=== PATIENT | male | born 1940 | race Caucasian/White ===

== ENCOUNTER → 2016-11-27 | Outpatient (CLI) | payer OTHER ==
[~2016-11-27] MED LIST: AGGRENOX PO; AGGRENOX1 CAP PO; AMLODIPINE BESYL5 MG PO; ASPIRIN ENTERI325 M1 PO; ASPIRIN81 M1 PO; BAYER CHEWABLE81 MG PO; BETAPACE PO; CORDARONE200 M1 PO; DOC-Q-LACE100 MG PO; ELIQUIS5 MG PO; LIPITOR PO; LIPITOR40 MG PO; OMEPRAZOLE20 M2 PO; PROTONIX PO; SIMVASTATIN40 MG PO; TOPROL XL50 MG PO; TUMS500 M1 PO; XARELTO20 MG PO; ZESTORETIC 10-1 EAC1 PO; [UNRECOGNIZED DRUG - OTHER] PO
--- NOTE | ~2016-11-27 | US37 ---
[facility] A Service of [facility] RADIOLOGY TEXT RESULTS PATIENT: KAM CAICEDO LOCATION: CNIV : 41 UNIT #: [id number] AGE: [address]: Jimmy Das MD SEX: M ORDER DR: [id number] [facility] [address] [place], [place] [address] [id number] O MR#: [id number] Acc #: [id number] NAME: KAM CAICEDO : 1940 SEX: M STUDY DATE/TIME: 11/27/2016 13:14 UNIT: CNIV ROOM: STUDY DESCRIPTION: US Carotid W/Doppler Bilateral Attending Physician: Jimmy Das M.D. Referring Physician: Jimmy Das M.D. Ordering Physician: Jimmy Das M.D. Primary Care Physician: Rangel Hylton M.D. MEDICAL IMAGING REPORT This report is preliminary unless electronic signature is present EXAM Bilateral carotid duplex date of examination 11/27/2016 HISTORY Carotid bruit FINDINGS There is patent flow seen throughout the right common carotid, internal carotid, and external carotid arteries. There is mild atherosclerosis noted of the right common carotid artery. At the right carotid bifurcation, there is some irregular, heterogeneous calcifications. There is also some irregular heterogeneous and echogenic plaque seen in the proximal aspect of the right internal carotid artery. The right common carotid artery peak velocity is 66 cm/sec. The right internal carotid artery peak systolic over end diastolic velocities are: Proximal 163/58 cm/sec, mid 143/44 cm/sec, distal 57/27 cm/sec. The right external carotid artery peak velocity is 75 cm/sec, and vertebral artery 45 cm/sec. The ICA/CCA ratio is 2.4. There is patent flow seen throughout the left common carotid, internal carotid, and external carotid arteries. There is some diffuse, homogeneous, irregular appearing plaque seen in the left common carotid artery. There is some mild irregular, and heterogeneous plaque seen in the left internal carotid artery at its proximal aspect. The left common carotid artery peak velocity is 59 cm/sec. The left internal carotid artery peak systolic over end diastolic velocities are: Proximal 47/19 cm/sec, mid 68/24 cm/sec, distal 43/16 cm/sec. The left external carotid artery peak velocity is 67 cm/sec, and vertebral artery 42 cm/sec. The left ICA/CCA ratio is 1.2. IMPRESSION 1. There is moderate atherosclerosis of the right carotid artery, which STS. [facility] A Service of [facility] RADIOLOGY TEXT RESULTS PATIENT: KAM CAICEDO LOCATION: CNIV : 41 UNIT #: [id number] AGE: [address]: Jimmy Das MD SEX: M ORDER DR: is consistent with 50-69% stenosis by duplex criteria. This finding is unchanged from the 05/2016 study. 2. The left carotid artery has minimal to mild atherosclerosis, which is not hemodynamically significant by duplex criteria (less than 50%). This finding is unchanged from the 05/2016 study. 3. Vertebral flow is antegrade bilaterally. Dictated by... Jim Ribera M.D. THIS IS AN ELECTRONICALLY VERIFIED REPORT Jim Ribera M.D. at 11/28/2016 2:25 PM MEME/rahta TD: 11/27/2016 16:45 JOB #: [id number] MEDICAL IMAGING REPORT Page 1 of 1 COPY
== END | disposition home or self-care (01) ==
LOC: CNIV 11:36
DX: R09.89 Other specified symptoms and signs involving the circulatory and respiratory systems (principal); I35.0 Nonrheumatic aortic (valve) stenosis; I65.23 Occlusion and stenosis of bilateral carotid arteries
CPT/HCPCS: 93306; 93880

== ENCOUNTER 2016-11-30 19:55 | Observation (INO) | payer OTHER ==
--- NOTE | ~2016-11-30 | HP ---
Unit #: [id number] #: [id number] Patient: KAM CAICEDO [id number] [facility]. [place], [place] [address] [id number] I MR#: [id number] NAME: KAM CAICEDO ROOM: 561 Age: 76 Sex: M Admission Date: 11/30/2016 : 1940 Attending Physician: Jimmy Das M.D. Primary Care Physician: Rangel Hylton M.D. HISTORY AND PHYSICAL NOTE This is a [facility] Cardiologists patient who follows with Dr. Das. REASON FOR ADMISSION Atrial fibrillation. HISTORY OF PRESENT ILLNESS The patient is a 76-year-old man who has been followed by Dr. Jimmy Das. Reportedly on December 26, 2011 patient had a cath with normal coronaries with an ejection fraction of 60%. The gradient across the aortic valve was 24 mm. On December 17, 2013 patient had a plain treadmill stress test which showed no ischemia. On December 05, 2014 patient had a 2D echocardiogram which showed an EF of 55% to 60%. RV was moderately dilated. LA mildly dilated. RA moderately dilated. Mild TR. RSVP was 35 mmHg. Aortic stenosis with peak/mean gradient 24/14 mmHg. MOHSEN 1.7 cm squared. The patient reports that he was diagnosed with atrial fibrillation and also has a history of a CVA. He reports that Dr. Das stopped his Eliquis approximately one year ago; put him back on his Aggrenox. The patient reports that yesterday around 6:30 after walking five miles the patient felt his face become flushed and felt fluttering and palpitations in his chest. There was no associated shortness of breath or diaphoresis. There is no radiation of pain. He did think he had some left chest soreness. This is how he felt the last time he had an episode of atrial fibrillation. In the emergency department EKG showed atrial fibrillation with RVR. His troponin was less than 0.05. Patient has been admitted to Cardiology and we are following for further management. PAST MEDICAL HISTORY 1. Cardiac cath December 26, 2011, normal coronaries, 24 mm gradient across the AV with an EF of 60%. 2. Plain treadmill December 17, 2013 showed no ischemia. 3. Two-D echo from December 05, 2014 showed an EF of 55% to 60% with right ventricle moderately dilated, left atrium mildly dilated, right atrium moderately dilated, mild MR and TR, RSVP 35 mmHg. Mild with peak/mean gradient 22/14 mmHg. MOHSEN 1.7 cm squared. 4. Paroxysmal atrial fibrillation. 5. CVA. 6. Hypertension. 7. Hyperlipidemia. 8. Obstructive sleep apnea. Unit #: [id number] #: [id number] Patient: KAM CAICEDO PAST SURGICAL HISTORY 1. Bilateral inguinal hernia repair. 2. Appendectomy. ALLERGIES No known allergies. HOME MEDICATIONS 1. Aggrenox one tab p.o. daily. 2. Zestoretic /.5 mg p.o. daily. 3. Lipitor 40 mg p.o. daily. 4. Amlodipine 5 mg p.o. daily. 5. Omeprazole 20 mg p.o. daily. 6. Toprol-XL 50 mg p.o. daily, FAMILY HISTORY Patient reports that his mother had congestive heart failure. His younger brother has cardiac arrhythmia and his sister at the age of 66 with congestive heart failure. SOCIAL HISTORY Patent reports that he quit smoking in 1978. He smokes approximately one pack of cigarettes per day. He is retired from [employer]. He states that he is fairly active and walks or bikes five miles a day. REVIEW OF SYSTEMS A 10-point review of systems has been done and is considered otherwise negative except as indicated in the HPI. PHYSICAL EXAMINATION GENERAL: Patient is awake, alert, in no acute distress. VITAL SIGNS: His vital signs are 97.6, heart rate 95, respirations 16, blood pressure 100/62 and he is oxygenating 96%. HEENT: Head is atraumatic and normocephalic. Pupils equally round and reactive. Extraocular movements are intact. No drainage from ears or nares. NECK: Neck is supple. Trachea is midline. Normal carotid upstrokes. No thyromegaly or lymphadenopathy is appreciated. CHEST: Lungs are clear to auscultation bilaterally. CARDIOVASCULAR: Irregularly irregular. No murmurs or gallops. Patient has a 2/6 systolic ejection murmur. ABDOMEN: Abdomen is soft, nontender and distended. Bowel sounds are positive in all four quadrants. No hepatosplenomegaly is appreciated. SKIN: Appears to be warm, dry and intact. EXTREMITIES: No clubbing, edema or cyanosis. NEUROLOGIC: Patient is alert and oriented. He is pleasant and conversant. No focal deficits. Cranial nerves II-XII appear to be intact. DIAGNOSTIC STUDIES CARDIOVASCULAR: EKG showed atrial fibrillation with RVR. LABORATORY RESULTS: White blood cells 5.8, hemoglobin 12.2, hematocrit 45.7, platelets 212, sodium 135, potassium 4.5, chloride 106, CO2 25, BUN 18, creatinine 0.8, glucose 91. ASSESSMENT 1. Paroxysmal atrial fibrillation with rapid ventricular rate. 2. Mild aortic stenosis with a peak mean gradient of 22/14 mmHg. Unit #: [id number] #: [id number] Patient: KAM CAICEDO 3. Hypertension. 4. Hyperlipidemia. 5. History of cerebrovascular accident. 6. Obstructive sleep apnea. 7. Reformed tobaccoism. PLAN I have discussed this case with Dr. Morley. Since the patient has been in atrial fibrillation likely less than 24 hours we will try to convert him with Betapace 120 mg p.o. now and then 80 mg p.o. b.i.d. Will discontinue the patient's metoprolol. Will check cardiac enzymes x2, lipid panel, TSH, BMP and magnesium in the morning. The patient's Aggrenox has been stopped and the patient is now back on Eliquis 5 mg p.o. b.i.d. He is also on aspirin 81 mg p.o. daily. A 2D echocardiogram has been ordered and is pending. Dictated by Heaven Gardiner A.P.R.N. for Avila Morley M.D. AM/lacey TD: 12/01/2016 13:11 JOB #: [id number] HISTORY AND PHYSICAL Page 1 of 1 X Heaven Gardiner APRN X HISTORY AND PHYSICAL
--- NOTE | ~2016-11-30 | EKG ---
PATIENT: KAM CAICEDO UNIT #: [id number] Ventricular Rate: 50 BPM Atrial Rate: 50 BPM P-R Interval: 186 ms QRS Duration: 88 ms Q-T Interval: 414 ms QTC Calculation(Bezet): 377 ms P Gr[place]: 69 degrees Calculated T Grimes: 7 degrees Diagnosis Line: Sinus bradycardia Diagnosis Line: Otherwise normal ECG Diagnosis Line: When compared with ECG of 02-DEC-2016 02:47, Diagnosis Line: (unconfirmed) Diagnosis Line: No significant change was found Diagnosis Line: Confirmed by LYNN MIXON MD ([id number]) on 12/02/2016 Diagnosis Line: 4:48:08 PM INTERPRETING MD: APURVA WU
--- NOTE | ~2016-11-30 | CR72 ---
[facility] A Service of [facility] & [facility] RADIOLOGY TEXT RESULTS PATIENT: KAM CAICEDO LOCATION: [facility] 561-01 : 41 UNIT #: [id number] AGE: [address]: Jimmy Das MD SEX: M ORDER DR: [id number] [facility] [address] [place], [place] [address] [id number] I MR#: [id number] Acc #: [id number] NAME: KAM CAICEDO : 1940 SEX: M STUDY DATE/TIME: 11/30/2016 20:01 UNIT: [facility] ROOM: [facility] STUDY DESCRIPTION: CR Chest Single View Portable Attending Physician: Jimmy Das M.D. Ordering Physician: Steve Fierro M.D. Primary Care Physician: Rangel Hylton M.D. MEDICAL IMAGING REPORT This report is preliminary unless electronic signature is present EXAM Portable chest INDICATIONS Chest pain tonight. COMPARISON 04/16/2016 FINDINGS Lungs are well expanded. Calcified granulomas in the left base. No acute infiltrate. Heart size stable. IMPRESSION No active disease Dictated by... Quinton Ryder M.D. THIS IS AN ELECTRONICALLY VERIFIED REPORT Quinton Ryder M.D. at 12/03/2016 8:02 AM HCAYO/rahat TD: 12/01/2016 04:17 JOB #: [id number] MEDICAL IMAGING REPORT Page 1 of 1 COPY
--- NOTE | ~2016-11-30 | EKG ---
PATIENT: KAM CAICEDO UNIT #: [id number] Ventricular Rate: 109 BPM Atrial Rate: 163 BPM QRS Duration: 92 ms Q-T Interval: 306 ms QTC Calculation(Bezet): 412 ms Calculated R Weiner: 42 degrees Calculated T Weiner: -3 degrees Diagnosis Line: Atrial fibrillation with rapid ventricular Diagnosis Line: response Diagnosis Line: Abnormal ECG Diagnosis Line: When compared with ECG of 30-NOV-2016 19:33, Diagnosis Line: (unconfirmed) Diagnosis Line: ST elevation has replaced ST depression in Diagnosis Line: Anterolateral leads Diagnosis Line: Confirmed by LYNN MIXON MD ([id number]) on 12/03/2016 Diagnosis Line: 10:36:01 PM INTERPRETING MD: APURVA WU
--- NOTE | ~2016-11-30 | EKG ---
PATIENT: KAM CAICEDO UNIT #: [id number] Ventricular Rate: 44 BPM Atrial Rate: 44 BPM P-R Interval: 198 ms QRS Duration: 98 ms Q-T Interval: 424 ms QTC Calculation(Bezet): 362 ms P [place]: 65 degrees Calculated R [place]: 17 degrees Calculated T [place]: 13 degrees Diagnosis Line: Marked sinus bradycardia Diagnosis Line: Abnormal ECG Diagnosis Line: When compared with ECG of 01-DEC-2016 06:04, Diagnosis Line: (unconfirmed) Diagnosis Line: Sinus rhythm has replaced Atrial fibrillation Diagnosis Line: Vent. rate has decreased BY 65 BPM Diagnosis Line: Confirmed by LYNN MIXON MD ([id number]) on 12/03/2016 Diagnosis Line: 10:36:41 PM INTERPRETING MD: APURVA WU
--- NOTE | ~2016-11-30 | EKG ---
PATIENT: KAM CAICEDO UNIT #: [id number] Ventricular Rate: 139 BPM Atrial Rate: 101 BPM QRS Duration: 88 ms Q-T Interval: 266 ms QTC Calculation(Bezet): 404 ms Calculated R Dameron: 22 degrees Calculated T Dameron: 1 degrees Diagnosis Line: Atrial fibrillation with rapid ventricular Diagnosis Line: response Diagnosis Line: Nonspecific ST abnormality Diagnosis Line: Abnormal ECG Diagnosis Line: When compared with ECG of 16-APR-2016 22:02, Diagnosis Line: Atrial fibrillation has replaced Sinus rhythm Diagnosis Line: Vent. rate has increased BY 84 BPM Diagnosis Line: ST now depressed in Anterolateral leads Diagnosis Line: Nonspecific T wave abnormality has replaced Diagnosis Line: inverted T waves in Inferior leads Diagnosis Line: Confirmed by LYNN MIXON MD ([id number]) on 12/03/2016 Diagnosis Line: 10:35:51 PM INTERPRETING MD: APURVA WU
[~2016-11-30 19:55] MED LIST changes: -AGGRENOX1 CAP PO; -BAYER CHEWABLE81 MG PO; -BETAPACE PO; -ELIQUIS5 MG PO; -OMEPRAZOLE20 M2 PO; -TOPROL XL50 MG PO; -ZESTORETIC 10-1 EAC1 PO
[2016-11-30 20:51] LABS: BASOPHIL% 0.4 % (0-2.5); DIFF IND NO; EOSINOPHIL# 0.1 X10e3 (0-0.7); EOSINOPHIL% 1.5 % (0.0-7.0); HEMATOCRIT 45.5 % (38.0-50.0); HEMOGLOBIN 15.3 gm/dL (13.0-16.0); LYMPHOCYTE# 1.9 X10e3 (1.0-3.5); LYMPHOCYTE% 24.7 % (17.0-45.0); MEAN CELL VOLUME 90.7 FL (83-96); MEAN CORPUSCULAR HEMOGLOBIN 30.4 PG (28-34); MEAN CORPUSCULAR HGB CONC 33.5 g/dL (30-36); MONOCYTE# 0.9 X10e3 (0-1.0); MONOCYTE% 11.6 % (3.0-12.0); NEUTROPHIL# 4.8 X10e3 (1.5-7.1); NEUTROPHIL% 61.8 % (40-75); PLATELET COUNT 211 X10e3 (140-420); RED BLOOD COUNT 5.02 X10e (3.90-5.60); RED CELL DISTRIBUTION WIDTH 12.7 % (11.0-15.5); WHITE BLOOD COUNT 7.7 X10e3 (4.0-10.5)
[2016-11-30 20:52] LABS: POC - TROPONIN <0.05 ng/mL (<=0.05)
[2016-11-30 21:15] LABS: ALBUMIN SERUM 3.9 g/dL (3.5-5.0); BILIRUBIN, DIRECT 0.1 mg/dL (0.0-0.2); BILIRUBIN,INDIRECT 0.9 mg/dL (0.0-0.9); BUN/CREATININE RATIO 21.11; CALCIUM SERUM 9.2 mg/dL (8.4-10.2); CREATININE SERUM 0.9 mg/dL (0.6-1.4); GLOM FILT RATE Estimated 83.3 mL/min (>60); PROTEIN TOTAL SERUM 6.5 g/dL (6.0-8.3)
[2016-11-30] MEDS ORDERED: AGGRENOX1 CAP PO (22:00)
[2016-11-30] MEDS ORDERED: ZESTORETIC 10-1 EAC1 PO (22:00)
[2016-11-30] MEDS ORDERED: LIPITOR40 MG PO (22:00)
[2016-11-30] MEDS ORDERED: AMLODIPINE BESYL5 MG PO (22:01)
[2016-11-30] MEDS ORDERED: TOPROL XL50 MG PO (22:02)
[2016-11-30] MEDS ORDERED: OMEPRAZOLE20 M2 PO (22:02)
[2016-11-30 23:41] LABS: POC - CKMB 1.1 ng/mL (0.0-7.9); POC - TROPONIN <0.05 ng/mL (<=0.05)
[2016-12-01 05:11] LABS: BASOPHIL% 0.4 % (0-2.5); EOSINOPHIL# 0.1 X10e3 (0-0.7); EOSINOPHIL% 1.7 % (0.0-7.0); HEMATOCRIT 45.7 % (38.0-50.0); HEMOGLOBIN 15.2 gm/dL (13.0-16.0); LYMPHOCYTE# 2.6 X10e3 (1.0-3.5); LYMPHOCYTE% 30.3 % (17.0-45.0); MEAN CORPUSCULAR HEMOGLOBIN 30.3 PG (28-34); MEAN CORPUSCULAR HGB CONC 33.3 g/dL (30-36); MEAN PLATELET VOLUME 8.3 FL (6.5-11.5); MONOCYTE# 0.9 X10e3 (0-1.0); MONOCYTE% 11.1 % (3.0-12.0); NEUTROPHIL# 4.8 X10e3 (1.5-7.1); NEUTROPHIL% 56.5 % (40-75); PLATELET COUNT 212 X10e3 (140-420); RED BLOOD COUNT 5.02 X10e (3.90-5.60); RED CELL DISTRIBUTION WIDTH 12.9 % (11.0-15.5); WHITE BLOOD COUNT 8.5 X10e3 (4.0-10.5)
[2016-12-01 05:12] LABS: DIFF IND NO
[2016-12-01 06:35] LABS: BUN/CREATININE RATIO 22.5; CALCIUM SERUM 9.2 mg/dL (8.4-10.2); CREATININE SERUM 0.8 mg/dL (0.6-1.4); GLOM FILT RATE Estimated 87.4 mL/min (>60); POTASSIUM 4.5 mmol/L (3.5-5.1)
[2016-12-01 13:05] LABS: CK TOTAL 56 IU/L (36-174)
[2016-12-01 13:40] LABS: CHOLESTEROL 144 mg/dL (0-200); HDL CHOLESTEROL 55 mg/dL (29-75); LDL CHOLESTEROL 74 mg/dL ([, -130]); LDL/HDL RATIO 1 RATIO (0-4); TRIGLYCERIDES 76 mg/dL (10-160)
[2016-12-01 19:01] LABS: CK TOTAL 52 IU/L (36-174)
[2016-12-02 07:51] LABS: CALCIUM SERUM 9.1 mg/dL (8.4-10.2); GLOM FILT RATE Estimated 73.3 mL/min (>60); POTASSIUM 4.8 mmol/L (3.5-5.1)
[2016-12-02] MEDS ORDERED: ELIQUIS5 MG PO (17:26)
[2016-12-02] MEDS ORDERED: BETAPACE PO (17:27)
[2016-12-02] MEDS ORDERED: BAYER CHEWABLE81 MG PO (17:28)
== END 2016-12-02 18:00 | disposition home or self-care (01) ==
LOC: CED 19:55 → CEDOF 22:50 → C5B 12-01 00:21
PROVIDERS: Emergency Medicine
DX: I48.0 Paroxysmal atrial fibrillation (principal); I08.2 Rheumatic disorders of both aortic and tricuspid valves; I10 Essential (primary) hypertension; E78.5 Hyperlipidemia, unspecified; Z79.01 Long term (current) use of anticoagulants; Z86.73 Personal history of transient ischemic attack (TIA), and cerebral infarction without residual deficits; G47.33 Obstructive sleep apnea (adult) (pediatric); Z87.891 Personal history of nicotine dependence; Z79.82 Long term (current) use of aspirin
CPT/HCPCS: 36415; 71010; 80048; 80061; 80076; 82550; 82553; 83735; 83880; 84443; 84484; 85025; 93005; 93306; 94660; 96374; 96376; 99285; G0378; J3490

== ENCOUNTER 2017-01-21 01:51 | Inpatient (IN) | payer OTHER ==
--- NOTE | ~2017-01-21 | DS ---
Unit #: [id number] #: [id number] Patient: KAM CAICEDO [id number] [facility]. [place], [place] [address] [id number] I MR#: [id number] NAME: KAM CAICEDO ROOM: 335 Age: 76 Sex: M Admission Date: 01/21/2017 : 1940 Discharge Date: 01/24/2017 Attending Physician: Austin Viramontes M.D. Primary Care Physician: Rangel Hylton M.D. DISCHARGE SUMMARY ADMITTING DIAGNOSES 1. Paroxysmal atrial fibrillation with rapid ventricular response. 2. Hypertension. 3. Hyperlipidemia. 4. Obstructive sleep apnea, treated with CPAP. 5. Ejection fraction of 55%. DISCHARGE DIAGNOSES 1. Paroxysmal atrial fibrillation. 2. Sick sinus syndrome. 3. Hypertension. 4. Hyperlipidemia. 5. History of transient ischemic attack. 6. Obstructive sleep apnea. 7. Ejection fraction of 55%. PROCEDURES Procedures performed during hospitalization include the followin. EKG shows marked sinus bradycardia with a ventricular rate of 48. 2. Previous EKG shows atrial fibrillation with RVR response with premature ventricular or aberrantly conducted complexes and a ventricular rate of 108. 3. Another EKG shows atrial fibrillation with rapid ventricular rate and nonspecific ST abnormality with a ventricular rate of 109. HOSPITAL COURSE Mr. Caicedo is a 76-year-old male that has a history of paroxysmal atrial fibrillation diagnosed in 2011. He was hospitalized the beginning of last month with atrial fibrillation with RVR and started on sotalol. He was discharged and taking 40 mg b.i.d. He developed some palpitations and extreme fatigue with this and it was decreased to 40 mg daily. He presented to the emergency room at [facility] then on January 21, 2017 at approximately 2 a.m. with a complaint of palpitations. He was found to be in atrial fibrillation with RVR and he was started on a Cardizem drip. He was continued on his Betapace at 40 mg. He received 40 mg later that morning of admission as well as 80 mg that evening. He converted to sinus bradycardia. His rates were decreased to 31 at times. With being awake and conversing, his rates were in the high 40s. Walking down the hallway, his rates increased to the 60s. He was having no other symptoms of dizziness or shortness of breath. Dr. 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 He has been referred for permanent pacemaker implantation. He will be transferred to [facility] early tomorrow morning for completion of this at that facility. Unit #: [id number] #: [id number] Patient: KAM CAICEDO This discharge dictation is being completed in anticipation of transport to [facility] in the early a.m. for completion with Dr. Allan of pacemaker implant. I have discussed with him at length the risks and benefits. He is in agreement to proceed. He has multiple questions and concerns which I have addressed. Further recommendations for atrial fibrillation treatment will be made after the device implant tomorrow. His last dose of Eliquis was on the evening of January 20, 2017. He has remained in sinus rhythm since conversion. He has been showing sinus bradycardia. Blood pressure 146/85, pulse 55, respirations 16. He is not having any dyspnea. DIAGNOSTIC STUDIES LABORATORY: Pertinent labs during hospitalization include: Sodium 138, potassium 4.7, glucose 113, BUN 19, creatinine 0.8, magnesium 2.1. Troponin less than 0.03 x2. Prior to that was 0.03 and prior to that was less than 0.05 x2. INR 1, PT 10.3. TSH 3.25. Sodium 138, potassium 4.7, glucose 113, BUN 19, creatinine 0.9, magnesium 2.1. DISCHARGE MEDICATIONS 1. Lopressor 5 mg IV q.6 p.r.n. for heart rate greater than 120. 2. Lipitor 40 mg nightly. 3. Ambien 2.5 mg nightly p.r.n. 4. Aspirin 81 mg daily. 5. Protonix 40 mg daily. DISCHARGE INSTRUCTIONS 1. Diet: He will be NPO on transport as he will be NPO after midnight tonight for pacemaker implantation tomorrow. Further diet recommendations after implantation. 2. Activity: Will be determined after implantation. He will have restricted activity of the limb at the site of implant. 3. Followup visit will also be established after discharge from [facility]. Dictated by... Myron Barcenas.P.R.NViolet for KodLilian Carrillo TD: 01/25/2017 09:36 JOB #: [id number] DISCHARGE SUMMARY Page 1 of 1 X X DISCHARGE SUMMARY
--- NOTE | ~2017-01-21 | EKG ---
PATIENT: KAM CAICEDO UNIT #: [id number] Ventricular Rate: 109 BPM Atrial Rate: 138 BPM QRS Duration: 94 ms Q-T Interval: 330 ms QTC Calculation(Bezet): 444 ms Calculated R Kathryn: 14 degrees Calculated T Kathryn: 15 degrees Diagnosis Line: Atrial fibrillation with rapid ventricular Diagnosis Line: response Diagnosis Line: Nonspecific ST abnormality Diagnosis Line: Abnormal ECG Diagnosis Line: No previous ECGs available Diagnosis Line: Confirmed by NESSA RIBEIRO MD ([id number]) on Diagnosis Line: 01/21/2017 9:40:00 PM INTERPRETING MD: QUINTIN WU
--- NOTE | ~2017-01-21 | CR72 ---
[facility] A Service of [facility] & [facility] RADIOLOGY TEXT RESULTS PATIENT: KAM CAICEDO LOCATION: [facility] 335- : 41 UNIT #: [id number] AGE: [address]: Alma Viramontes MD SEX: M ORDER DR: [id number] [facility] [address] [place], [place] [address] [id number] I MR#: [id number] Acc #: [id number] NAME: KAM CAICEDO : 1940 SEX: M STUDY DATE/TIME: 01/21/2017 2:32 UNIT: [address] ROOM: [facility] STUDY DESCRIPTION: CR Chest Single View Portable Attending Physician: Austin Viramontes M.D. Ordering Physician: Yosef Conrad M.D. Primary Care Physician: Rangel Hylton M.D. MEDICAL IMAGING REPORT This report is preliminary unless electronic signature is present EXAM Portable chest INDICATIONS Palpitations. Chest pain tonight. TECHNIQUE Frontal view chest. COMPARISON STUDIES 11/30/2016. FINDINGS Cardiomegaly probably unchanged. No dense consolidation, effusion or pneumothorax. IMPRESSION Stable cardiomegaly. No active process. Dictated by... Ryland Ballesteros M.D. THIS IS AN ELECTRONICALLY VERIFIED REPORT Ryland Ballesteros M.D. at 01/22/2017 9:57 PM EED/pcl TD: 01/21/2017 11:13 JOB #: [id number] MEDICAL IMAGING REPORT Page 1 of 1 COPY
--- NOTE | ~2017-01-21 | EKG ---
PATIENT: KAM CAICEDO UNIT #: [id number] Ventricular Rate: 48 BPM Atrial Rate: 48 BPM P-R Interval: 134 ms QRS Duration: 84 ms Q-T Interval: 392 ms QTC Calculation(Bezet): 350 ms P [place]: 58 degrees Calculated R [place]: 15 degrees Calculated T [place]: 21 degrees Diagnosis Line: Marked sinus bradycardia Diagnosis Line: Abnormal ECG Diagnosis Line: No previous ECGs available Diagnosis Line: Confirmed by NESSA RIBEIRO MD ([id number]) on Diagnosis Line: 01/22/2017 3:20:29 PM INTERPRETING MD: QUINTIN WU
--- NOTE | ~2017-01-21 | HP ---
Unit #: [id number] #: [id number] Patient: KAM CAICEDO [id number] [facility] [address] [place], [place] [address] [id number] MR#: [id number] NAME: KAM CAICEDO ROOM: 335 Age: 76 Sex: M Admission Date: 01/21/2017 : 1940 Attending Physician: Austin Viramontes M.D. Primary Care Physician: Rangel Hylton M.D. HISTORY AND PHYSICAL REASON FOR ADMISSION Palpitations and irregular heartbeat. HISTORY OF PRESENT ILLNESS The patient is a 76-year-old white male who is a patient of Dr. Das and is being followed for his paroxysmal atrial fibrillation diagnosed in 2009, history of possible CVA versus TIA, hypertension, hyperlipidemia, obstructive sleep apnea and anxiety. The patient presented to the [facility] emergency department this morning after he was awakened around 1:50 a.m. with palpitations and an irregular heartbeat. The patient states that he has had several bouts of atrial fibrillation in the past and is very aware of when his heartbeat is irregular. The patient was just admitted to the hospital 12/01/2016 for atrial fibrillation, where he was placed on sotalol 80 mg b.i.d. and did convert to sinus zuleyma rhythm upon discharge. The patient denies any chest pain, pressure or tightness. He does complain of a cough that has been going on and was thought to be the lisinopril in the past. That was stopped and changed to something else. However, his cough did not improve. Upon looking at his home medication list, the patient is still taking lisinopril. The patient also complains of some dizziness when he is moving around, but states that it is very faint and he has never felt like he is going to pass out. The patient also does complain that he has had some issues with a slight numbing sensation to his left arm and leg occasionally when he is sitting mostly and says that also it is very slight and he has never really mentioned it to me when seen previously. He denies any nausea, vomiting, diarrhea, fevers or chills. The patient had an echo on 12/01/2016 that showed an ejection fraction of 55%. Mild concentric LVH. Mildly dilated right ventricle. RVSP was 78, consistent with mild pulmonary hypertension. AV area was 1.45 cm squared. Max gradient was 30 mmHg and mean gradient 21 mmHg, consistent with moderate AF and mild TR. The patient also had a cardiac catheterization in 2011 that showed normal coronary arteries with an ejection fraction of 50%. He then had a stress test in 2013 that showed no ischemia. The patient was discharged from the hospital on 80 mg of Betapace b.i.d. He states that he was on that for about a week at home. However, he then noted that his heart rate was down in the 30s and he felt kind of tired and was worried about it. He called Dr. Das, who told him to take half a table once daily. Therefore, since then he has been taking 40 mg of Betapace once a day. The patient has also been taking his Eliquis for his blood thinning medicine since that admission. PAST MEDICAL HISTORY Unit #: [id number] #: [id number] Patient: KAM CAICEDO 1. Bilateral inguinal hernia repair. 2. Appendectomy. SOCIAL HISTORY The patient was a smoker. However, he quit in 1978. He also would drink alcohol, not having been drinking since around 2014. He is retired. He lives at home with his . He states that he is fairly active and walks five miles per day with a friend. FAMILY HISTORY His mother had congestive heart failure. He also has a brother who has had cardiac arrhythmia and last year. He has a sister who also has congestive heart failure. ALLERGIES No known drug allergies. HOME MEDICATIONS 1. Sotalol 40 mg daily. 2. Eliquis 5 mg b.i.d. 3. Lisinopril/HCTZ 10/12.5 mg daily. 4. Lipitor 40 mg p.o. daily. 5. Norvasc 5 mg p.o. daily. 6. Omeprazole 20 mg p.o. daily. REVIEW OF SYSTEMS See history of present illness. PHYSICAL EXAMINATION GENERAL: This is a 76-year-old white male who is alert and oriented times 3, in no apparent distress. VITALS: Blood pressure 97/66, temperature 97.5, pulse 97, respiratory rate 20. HEENT: Pupils equal, round and reactive. Oral mucosa moist. NECK: No jugular venous distension. No thyromegaly. No lymphadenopathy. LUNGS: Clear. HEART: S1 and S2. No S3 or S4. Irregularly irregular rhythm with no murmurs, rubs or gallops. ABDOMEN: Soft. Bowel sounds positive. Nontender. EXTREMITIES: No swelling. NEUROLOGIC: No neurologic deficits noted. DIAGNOSTIC STUDIES IMAGING: No imaging studies were done. LABORATORY: White blood cell count 8.1, hemoglobin 15.7, hematocrit 47.3, platelets 209, troponin less than 0.05 and less than 0.05. PT was 10.3, INR 1, sodium 136, potassium 3.6, chloride 101, CO2 24, glucose 111, BUN 16, creatinine 0.9. TSH 3.25. CARDIOVASCULAR: EKG showing atrial fibrillation with rapid ventricular response with a rate of 108-109. ASSESSMENT 1. Atrial fibrillation with rapid ventricular response. 2. Paroxysmal atrial fibrillation. 3. History of CVA versus TIA. 4. Hypertension. Unit #: [id number] #: [id number] Patient: KAM CAICEDO 5. Hyperlipidemia. 6. Obstructive sleep apnea. 7. Anxiety. PLAN The patient has been on anticoagulation therapy for over a month. At this time will plan to continue Sotalol at 40 mg b.i.d. and monitor heart rate, rhythm and blood pressure. The patient will be continued on his Eliquis. Will continue all medications except for blood pressure medicine as blood pressure is currently borderline. Will see if the patient can convert on sotalol as he did at last admission. If not, further options will be discussed. Dr. Archer is to follow behind with any further recommendations. Dictated by Mercedes Johnson APRN for Lilian Cramer TD: 01/21/2017 10:22 JOB #: [id number] HISTORY AND PHYSICAL Page 1 of 1 X X HISTORY AND PHYSICAL
--- NOTE | ~2017-01-21 | EKG ---
PATIENT: KAM CAICEDO UNIT #: [id number] Ventricular Rate: 108 BPM Atrial Rate: 94 BPM QRS Duration: 86 ms Q-T Interval: 286 ms QTC Calculation(Bezet): 383 ms Calculated R [place]: 18 degrees Calculated T [place]: -18 degrees Diagnosis Line: Atrial fibrillation with rapid ventricular Diagnosis Line: response with premature ventricular or aberrantly Diagnosis Line: conducted complexes Diagnosis Line: Inferior infarct , age undetermined Diagnosis Line: Abnormal ECG Diagnosis Line: When compared with ECG of 02-DEC-2016 12:11, Diagnosis Line: Atrial fibrillation has replaced Sinus rhythm Diagnosis Line: Vent. rate has increased BY 58 BPM Diagnosis Line: Inferior infarct is now Present Diagnosis Line: Confirmed by NESSA RIBEIRO MD ([id number]) on Diagnosis Line: 01/21/2017 9:40:42 PM INTERPRETING MD: QUINTIN WU
[~2017-01-21 01:51] MED LIST changes: +AGGRENOX1 CAP PO; +BAYER CHEWABLE81 MG PO; +BETAPACE PO; +ELIQUIS5 MG PO; +OMEPRAZOLE20 M2 PO; +TOPROL XL50 MG PO; +ZESTORETIC 10-1 EAC1 PO
[2017-01-21 02:28] LABS: BASOPHIL% 0.6 % (0-2.5); EOSINOPHIL# 0.1 X10e3 (0-0.7); EOSINOPHIL% 1.8 % (0.0-7.0); HEMATOCRIT 47.3 % (38.0-50.0); HEMOGLOBIN 15.7 gm/dL (13.0-16.0); LYMPHOCYTE# 3.2 X10e3 (1.0-3.5); LYMPHOCYTE% 39.4 % (17.0-45.0); MEAN CELL VOLUME 89.6 FL (83-96); MEAN CORPUSCULAR HEMOGLOBIN 29.8 PG (28-34); MEAN CORPUSCULAR HGB CONC 33.2 g/dL (30-36); MONOCYTE# 0.9 X10e3 (0-1.0); MONOCYTE% 11.2 % (3.0-12.0); NEUTROPHIL# 3.8 X10e3 (1.5-7.1); PLATELET COUNT 209 X10e3 (140-420); RED BLOOD COUNT 5.28 X10e (3.90-5.60); RED CELL DISTRIBUTION WIDTH 12.7 % (11.0-15.5); WHITE BLOOD COUNT 8.1 X10e3 (4.0-10.5)
[2017-01-21 02:34] LABS: DIFF IND NO
[2017-01-21 02:35] LABS: POC - TROPONIN <0.05 ng/mL (<=0.05)
[2017-01-21 02:43] LABS: PARTIAL THROMBOPLASTIN TIME 25.2 SECONDS (23.5-31.3); PROTHROMBIN TIME (PATIENT) 10.3 SECONDS (9.6-11.5)
[2017-01-21 02:49] LABS: ALBUMIN SERUM 3.9 g/dL (3.5-5.0); BILIRUBIN, DIRECT 0.1 mg/dL (0.0-0.2); BILIRUBIN,INDIRECT 0.5 mg/dL (0.0-0.9); BILIRUBIN,TOTAL 0.6 mg/dL (0.2-2.0); BUN/CREATININE RATIO 17.77; CALCIUM SERUM 9.1 mg/dL (8.4-10.2); CREATININE SERUM 0.9 mg/dL (0.6-1.4); GLOM FILT RATE Estimated 83.3 mL/min (>60); POTASSIUM 3.6 mmol/L (3.5-5.1); PROTEIN TOTAL SERUM 6.7 g/dL (6.0-8.3)
[2017-01-21 04:20] LABS: POC - CKMB <1.0 ng/mL (0.0-7.9); POC - TROPONIN <0.05 ng/mL (<=0.05)
[2017-01-21 09:59] LABS: MB 3.3 ng/ml
[2017-01-21 12:01] LABS: %MB 4.7 % (0.0-4.0)
[2017-01-21 16:47] LABS: %MB 4.4 % (0.0-4.0); MB 2.7 ng/ml
[2017-01-22 07:47] LABS: BUN/CREATININE RATIO 21.11; CALCIUM SERUM 9.4 mg/dL (8.4-10.2); CREATININE SERUM 0.9 mg/dL (0.6-1.4); GLOM FILT RATE Estimated 83.3 mL/min (>60); MAGNESIUM 2.1 mg/dL (1.6-3.0); POTASSIUM 4.7 mmol/L (3.5-5.1)
== END 2017-01-24 09:01 | DRG 310 ==
LOC: CED 01:51 → C3A PCU 03:50 → CEDOF 03:50 → CED 03:57 → CEDOF 03:57 → C3A PCU 03:57 → CEDOF 04:59 → C3A PCU 04:59
PROVIDERS: Emergency Medicine; Internal Medicine Cardiovascular Disease
DX: I49.5 Sick sinus syndrome (principal); I27.2 Other secondary pulmonary hypertension; I48.0 Paroxysmal atrial fibrillation; I10 Essential (primary) hypertension; E78.5 Hyperlipidemia, unspecified; G47.33 Obstructive sleep apnea (adult) (pediatric); Z86.73 Personal history of transient ischemic attack (TIA), and cerebral infarction without residual deficits; Z79.01 Long term (current) use of anticoagulants; Z87.891 Personal history of nicotine dependence; F41.9 Anxiety disorder, unspecified
CPT/HCPCS: 36415; 71010; 80048; 80076; 82550; 82553; 83735; 84443; 84484; 85025; 85610; 85730; 93005; 96374; 99285